=== PATIENT | female | born 1980 | race Caucasian/White ===

== ENCOUNTER 2016-09-04 12:38 | Inpatient (IN) | payer MEDICAID ==
[2016-09-04] MEDS ORDERED: MAG HYDROX/AL HYDROX/SIMETH 30 ML UDCUP PO PRN (22:05)
[2016-09-04] MEDS ORDERED: LORazepam 0.5 MG TAB PO PRN (22:05)
[2016-09-04] MEDS ORDERED: MAGNESIUM HYDROXIDE 30 ML UDCUP PO PRN (22:05)
[2016-09-05] MEDS: GABAPENTIN 400 MG CAP PO SCH ×2 (08:31→08:43)
[2016-09-05] MEDS: metFORMIN HCL 500 MG TAB PO SCH (08:32)
[2016-09-05] MEDS: SPIRONOLACTONE 50 MG TAB PO SCH (08:32)
[2016-09-05] MEDS: amLODIPine BESYLATE 5 MG TAB PO SCH ×2 (08:32→08:44)
[2016-09-05] MEDS: MULTIVITAMINS 1 EACH TAB PO SCH (08:32)
[2016-09-05] MEDS: LOSARTAN POTASSIUM 50 MG TAB PO SCH ×2 (08:32→08:45)
[2016-09-05] MEDS: OMEGA-3 FATTY ACIDS 1,000 MG CAP PO SCH ×2 (08:32→20:41)
[2016-09-05] MEDS: Levomefolate/Algal Oil [Deplin-Algal Oil 15 Mg Capsule] PO SCH (08:39)
[2016-09-05] MEDS ORDERED: Desvenlafaxine Succinate [Pristiq] 100 MG PO SCH (09:00)
[2016-09-05] MEDS ORDERED: DESVENLAFAXINE SUCCINATE PO SCH (10:54)
[2016-09-05] MEDS ORDERED: buPROPion XL 150 MG TAB PO ONE (11:16)
[2016-09-05] MEDS ORDERED: VENLAFAXINE XR 150 MG CAP PO ONE (11:28)
[2016-09-05] MEDS: VENLAFAXINE XR 150 MG CAP PO SCH (12:20)
--- NOTE | 2016-09-05 13:44 | BAPA ---
[f rep st] ADMISSION PSYCHIATRIC ASSESSMENT DATE OF SERVICE: 09/05/2016 CHIEF COMPLAINT: "I just wanted the pain to stop." HISTORY OF PRESENT ILLNESS: The patient is a 36-year-old female, well known to me from previous outpatient ECT. She has a history of mood problems and previous diagnoses of treatment-resistant major depression with consideration of possible bipolar disorder. In recent months, we have been focusing more on the mood variability and she has had several trials of atypical agents and mood stabilizers. Most recently, she was tried on Latuda and Lamictal. She states she believes the Lamictal may have been somewhat helpful, but has had persistent loose bowels with it. Latuda was not helpful and she experienced some akathisia and it was discontinued by her outpatient psychiatrist about 2 weeks ago. She reports struggling with the of her about 7 weeks ago and continuing to have significant grief. He was suffering from cystic fibrosis and had a lung transplant. He had done well with this for several years until getting a respiratory infection this winter and eventually dying. She states that she has been unable to overcome the grief of this and it has certainly been known to our treatment staff and her family that she has been struggling quite a bit. She had verbally contracted for safety with her family and they had a plan in place to keep an eye on her. Her mother had visited with her earlier in the day on Sunday and stated that she was tearful talking about her , but that she was not mentioning any thoughts of suicide. Her mother then heard sirens and saw that police and ambulance were responding to her daughter's home, which is only several hundred feet from her home. She then ran over and her daughter was found unconscious after taking a large overdose of multiple medications in the home. She was Life Flighted to [place] from there and was unconscious and was intubated in the ICU for several days. She did ultimately recover without any major complications and was transferred to our facility for further treatment. Today, she states that she is regretful and remorseful about the events and cannot identify a specific precipitant. She states that she has considered suicide for some time, but had made a promise to her that she would "live enough for both of us." She reports, however, having, in her words, too much psychic pain and grief and stated that she could not see an end to this and decided that she would simply take all of her pills "to make the pain finally go away." She then took every medication she could find in her home, with the expressed intention of killing herself. She does state, however, that she texted her ex-boyfriend, who is a crime prevention police officer, that she had done this and had some expectation that he would send help. He, in fact , did call the ambulance and police, who ultimately responded. Today, she states that she feels like this was a relief to her in some way, and that she feels guilty and ashamed for having done this to her family, but that she is more hopeful. She states that she is no longer feeling suicidal and would like to work on new ways of addressing her depression and grief and would also like to consider medication changes. PAST PSYCHIATRIC HISTORY: Significant for multiple previous medication trials in the past, well documented in previous evaluations. She is followed by a psychiatrist in [place] and also sees a therapist. She has had a history of previous psychiatric hospitalizations and previous suicide attempts. ALLERGIES: N-acetylcysteinate and erythromycin. CURRENT MEDICATIONS: Norvasc 10 mg daily, Pristiq 150 mg daily, Flonase nasal spray 2 sprays h.s., gabapentin 800 mg t.i.d., Lamictal 150 mg daily, Losartan 50 mg daily, metformin 500 mg b.i.d., omega-3 fatty acids 1000 mg b.i.d., Protonix 40 mg h.s., Requip 1 mg h.s., and spironolactone 50 mg daily. PAST MEDICAL HISTORY: Significant for chronic interstitial cystitis, chronic fibromyalgia pain, diagnosis of fibromyalgia, polycystic ovary disease. SOCIAL HISTORY: The patient lives alone in a home in [place] near her parents and her sister. She does not work outside of the home and has been fairly disabled due to her chronic depression. She was for 4 years until the of her about 7 weeks ago. She is very close to her parents and her sister and has been the primary caregiver to her sister's 2 young children over time. She uses marijuana on an intermittent basis up to daily, which she believes helps with her chronic myofascial pain. She has no other significant history of substance abuse. FAMILY HISTORY: Noncontributory. ADMISSION LABORATORY: No additional labs were drawn on transfer. MENTAL STATUS EXAMINATION: Reveals a well groomed, neatly dressed female. She is pleasant and cooperative and interacts well with the examiner. Her affect is actually fairly bright and she smiles frequently, though she does become tearful when describing the events and also her . Her mood is described as "actually a lot better." Her thought process is linear and goal directed. Her thought content reveals no evidence of psychosis. She is alert and oriented to person, place, time, and situation. Her sensorium is clear. Her intellect is at least average as evidenced by her educational and occupational histories, fund of knowledge, and vocabulary. She continues to acknowledge the thoughts of suicide, but states that she is not currently having any urge to harm herself. Her insight and judgment appear to be good. IMPRESSION: Major Depressive Episode, recurrent, severe, without psychosis, acute grief, recent of , chronic illness, recent overdose. The patient is a pleasant 36-year-old female, well known to me from previous outpatient ECT treatment. She has had a fairly protracted course of outpatient ECT and when we have tried to extend the intervals, she has had setbacks. She was doing well after [place] until the of her , which was a sudden and unexpected event. This predictably caused her to decline , and she has simply not recovered. Her suicide attempt was extremely high lethality and it is definitely cause for us to re-evaluate her treatment plan. She looks better today and is hopeful and willing to participate. Her family remains excellent support and are invested in continuing to participate as well. PLAN: 1. Admit to the [facility] unit on an M1 hold. 2. We will look at her medications and have already made a few changes. She wants to discontinue her Cozaar and spironolactone, as well as her gabapentin, as she believes that these are not necessary. She also does not believe that the Requip helps her, so we will discontinue this as well. We will change the Pristiq to Effexor XR due to the lack of availability of Pristiq on the formulary. The similarity of these medications was discussed with the patient, and I believe it will be fine to do that. We will then add Rexulti 1 mg at bedtime to augment the venlafaxine and to replace the recently discontinued Latuda and Lamictal, which she does not want to take any longer either. We will engage the patient in individual group and milieu psychotherapies, as well as family work while she is in the hospital, maintaining close observations for suicidality. We will do an abbreviated acute course with between 3 and 5 ECT treatments while she is here with us to hopefully gain some omentum and get her moving forward. ESTIMATED LENGTH OF STAY: 7-10 days. /[id number]/MODL MTDD
[2016-09-05] MEDS: BREXPIPRAZOLE 1 MG TAB PO SCH (20:41)
[2016-09-05] MEDS: FLUTICASONE NASAL 120 SPRAYS/16 GM MDI EACHNARE SCH (20:41)
[2016-09-05] MEDS: PANTOPRAZOLE SODIUM 40 MG TAB PO SCH (20:41)
[2016-09-06] MEDS ORDERED: NS 1,000 ML IV ONE (07:00)
[2016-09-06] MEDS ORDERED: ONDANSETRON DISINTEGRATING 4 MG TAB PO ONE (07:00)
[2016-09-06] MEDS ORDERED: LIDOCAINE 2% 5 ML SDV ID ONE (07:00)
[2016-09-06] MEDS ORDERED: CITRIC ACID/SODIUM CITRATE 30 ML UDCUP PO ONE (07:00)
[2016-09-06] MEDS ORDERED: THEOPHYLLINE ORAL SOLUTION 80 MG/15 ML UDCUP PO ONE (07:00)
[2016-09-06] MEDS: Levomefolate/Algal Oil [Deplin-Algal Oil 15 Mg Capsule] PO SCH (08:19)
[2016-09-06] MEDS: SPIRONOLACTONE 50 MG TAB PO SCH (08:20)
[2016-09-06] MEDS: MULTIVITAMINS 1 EACH TAB PO SCH (08:20)
[2016-09-06] MEDS: metFORMIN HCL 500 MG TAB PO SCH (08:21)
[2016-09-06] MEDS: LOSARTAN POTASSIUM 50 MG TAB PO SCH (08:21)
[2016-09-06] MEDS: VENLAFAXINE XR 150 MG CAP PO SCH (08:22)
[2016-09-06] MEDS: OMEGA-3 FATTY ACIDS 1,000 MG CAP PO SCH ×2 (08:27→19:57)
[2016-09-06 09:27] LABS: ANION GAP 14 mEq/L (8-16); CALCIUM 9.9 mg/dL (8.5-10.4); CARBON DIOXIDE 22 mEq/l (22-31); CHLORIDE 104 mEq/L (97-110); CREATININE 0.9 mg/dL (0.6-1.0); GLOMERULAR FILTRATION RATE > 60; GLUCOSE 87 mg/dL (70-100); POTASSIUM 4.5 mEq/L (3.5-5.2); SODIUM 140 mEq/L (134-144)
[2016-09-06] MEDS ORDERED: SCOPOLAMINE HYDROBROMIDE 1.5 MG PATCH TD ONE (09:31)
[2016-09-06] MEDS ORDERED: LOPERAMIDE HCL 2 MG CAP ONE (09:32)
[2016-09-06] MEDS: SCOPOLAMINE HYDROBROMIDE 1.5 MG PATCH TD SCH (10:20)
[2016-09-06] MEDS: LOPERAMIDE HCL 2 MG CAP PO PRN (10:34)
--- NOTE | 2016-09-06 11:52 | BCON ---
[f rep st] BEHAVIORAL HEALTH CONSULTATION INTERNAL MEDICINE CONSULTATION DATE OF CONSULTATION: 09/05/2016 REASON FOR CONSULTATION: Medical clearance for inpatient behavioral health stay. HISTORY OF PRESENT ILLNESS: Mrs. Gillespie came to [facility] yesterday for inpatient treatment, including electroconvulsive therapy for worsening depression and suicidality. She had taken an overdose of her medications, which was treated near her home in [place], and then she was transferred to [employer] [facility] where she has been receiving electroconvulsive therapy in the past. She says she feels better now. The suicidality and depression followed the of her approximately 7 weeks ago. She is interested in simplifying her medications and would like to discontinue ropinirole, amlodipine, and gabapentin, which had been prescribed for presumptive restless legs syndrome, hypertension, and fibromyalgia. She currently is without any acute complaints. PAST MEDICAL HISTORY: 1. Bipolar disorder with depression. 2. Polycystic ovary syndrome. 3. Fibromyalgia. 4. Chronic interstitial cystitis. 5. Restless leg syndrome. 6. Obesity. 7. Hypertension. 8. Seasonal allergies. PAST SURGICAL HISTORY: 1. Appendectomy. 2. Exploratory laparoscopy in the process of diagnosis of interstitial cellulitis. MEDICATIONS: Prior to admission, she was takin. Ropinirole 1 mg p.o. at bedtime. 2. Metformin 500 mg p.o. daily. 3. Amlodipine 10 mg p.o. daily. 4. Spironolactone 50 mg p.o. daily. 5. Pantoprazole 40 mg at bedtime. 6. [place]-3 fatty acids 1000 mg p.o. b.i.d. 7. Multivitamin 1 p.o. daily. 8. Losartan 50 mg p.o. daily. 9. Levomefolate/alga oil 1 p.o. daily. 10. Hydrocodone/acetaminophen 5/325 one p.o. q.4 hours p.r.n. 11. Gabapentin 800 mg p.o. t.i.d. 12. Fluticasone nasal spray 2 sprays at bedtime. 13. Desvenlafaxine 100 mg p.o. daily. ALLERGIES: Listed to acetylcysteine and erythromycin base. SOCIAL HISTORY: Her recently . He had cystic fibrosis. She has no children. She is unemployed. She is a nonsmoker and a nondrinker. She uses marijuana. FAMILY HISTORY: Noncontributory. REVIEW OF SYSTEMS: Per chart review, she has had an approximately 11 kg weight loss since October of last year. She has ongoing discomfort from interstitial cystitis and fibromyalgia, which limit her ability to exercise; still, she says she gets out and walks most every day approximately half an hour. She reports she sleeps approximately 12 hours each night. She snores, is tired during the day, and can take a nap at any time. She denies fevers, chills, heat or cold intolerance, cough, dyspnea chest pain, palpitations. Other than that, a 10- point review of systems is negative. PHYSICAL EXAMINATION: VITAL SIGNS: Blood pressure is 128/68, heart rate is 94, respiratory rate is 16, oxygen saturation is 96% on room air, temperature is 36.6 degrees centigrade. Her weight is 108.9 kg for a body mass index of 36. GENERAL: This is a well-nourished, well-developed obese woman who appears her chronologic age, cooperative and in no acute distress. HEENT: Extraocular movements are intact. Pupils are equal, round, and reactive to light. Mucous membranes are moist. Dentition is in good condition. Airway is uncrowded, Mallampati class 2. NECK: Full. There is no thyromegaly. HEART: There is a regular rate and rhythm with no murmurs, rubs, or gallops. LUNGS: Clear to auscultation bilaterally. ABDOMEN: Soft, nontender, nondistended with normoactive bowel sounds. EXTREMITIES: There is no cyanosis, clubbing, or edema. Radial pulses are 2+ bilaterally. Dorsalis pedis pulses are 1+ bilaterally. NEUROLOGIC: She is alert and oriented x3. Cranial nerves 2-12 are grossly intact. There is no focal weakness. Sensation is intact to light touch, and deep tendon reflexes are 2+ bilaterally at the biceps, patella and Achilles tendons. ASSESSMENT/RECOMMENDATIONS: 1. Mental health issues, pending further evaluation and management per Psychiatry and the mental health team. 2. Obesity with weight loss over the past 10 months. Encouraged continued exercise with gradually increased duration and intensity in order to improve her fitness, improve her weight loss, and avoid flaring symptoms of fibromyalgia. 3. Chronic interstitial cystitis. No particular treatment is indicated at present. 4. Polycystic ovary disease. Agree with continuing metformin. Agree with continuing spironolactone which will both treat her blood pressure and block some of the androgenic effects associated with polycystic ovary syndrome. 5. Hypertension. Agree with discontinuing amlodipine. She is on a large dose, so observe for elevated blood pressures. If so, she is on half the maximum dose of losartan, and this can easily be increased. I will get a baseline basic metabolic profile to ensure, with simultaneous angiotensin receptor luis alberto and spironolactone, that she does not have an elevated potassium. 6. Possible restless leg syndrome. Observe for return of symptoms with the discontinuation of ropinirole. She says this was diagnosed by her psychiatrist in the past and has not been found with a formal sleep study. 7. Concern for obstructive sleep apnea. Her body habitus and history of snoring , as well as daytime fatigue and sleepiness despite 12 hours per night in bed, are all consistent with obstructive sleep apnea. She does not have a crowded airway, however. Advised continued attempts at weight loss and advised a sleep study after her discharge. 8. She reports a history of hypothyroidism which went along with 100-pound weight gain. She reports that her thyroid studies have normalized since then. Will also order a TSH to evaluate her current thyroid status, as hypothyroidism could also account for her daytime sleepiness. 9. Seasonal allergies appear to be adequately controlled with her fluticasone nasal spray. 10. Gastroesophageal reflux disorder, on pantoprazole. Curious that is dosed at bedtime; it is more effective if it is dosed 1st thing in the morning, 30 minutes or more before a meal. I see no medical contraindications to this patient's continued stay on the inpatient behavioral health unit or to any psychiatric medications or procedures. Thank you very much for including me in the care of this patient, and please do not hesitate to contact me or the hospitalists service should there be need for further medical consult/evaluation. I will follow along regarding her blood pressure and possibly other medical comorbidities if necessary. /[id number]/MODL MTDD
[2016-09-06] MEDS ORDERED: CITRIC ACID/SODIUM CITRATE 30 ML UDCUP ONE (13:21)
[2016-09-06] MEDS ORDERED: ONDANSETRON DISINTEGRATING 4 MG TAB ONE (13:21)
[2016-09-06] MEDS ORDERED: PROMETHAZINE HCL 25 MG TAB ONE (13:21)
[2016-09-06] MEDS: FLUTICASONE NASAL 120 SPRAYS/16 GM MDI EACHNARE SCH (19:57)
[2016-09-06] MEDS: BREXPIPRAZOLE 1 MG TAB PO SCH (19:57)
[2016-09-06] MEDS: PANTOPRAZOLE SODIUM 40 MG TAB PO SCH (19:57)
--- NOTE | 2016-09-06 22:06 | SOAPPROG ---
SOAP Progress Note Assessment/Plan: Assessment: Plan: 09/06/16 22:06 Seems to be a bit too good at this point. Will CCM, watch closely for indicators of false positive reporting. Subjective: Pt seen, discussed with staff. Reports continued depressed mood though states she is more hopeful. Denies active SI at this time though appears to myself and staff as presenting overly positive. I met with her parents for 30", reviewed treatment plan. Objective: Vital Signs Temp Pulse Resp BP Pulse Ox 36.5 C 84 16 106/57 L 92 09/06/16 17:16 09/06/16 17:16 09/06/16 17:16 09/06/16 17:16 09/06/16 17:16 Laboratory Results 09/06/16 06:30 MSE: Brighter affect, smiling. Mood is "better." TP linear. TC reveals no psychosis. Denies any thought of suicide whatsoever. - Time Spent With Patient Time Spent With Patient: 35" - Pending Discharge Pending Discharge Within 24 Hours: No Pending Discharge Within 48 Hours: No ICD10 Worksheet Patient Problems: Problems Problem Status Onset Depression Acute Suicidal ideation Acute
[2016-09-07] MEDS: MULTIVITAMINS 1 EACH TAB PO SCH (08:38)
[2016-09-07] MEDS: VENLAFAXINE XR 150 MG CAP PO SCH (08:38)
[2016-09-07] MEDS: SPIRONOLACTONE 50 MG TAB PO SCH (08:38)
[2016-09-07] MEDS: metFORMIN HCL 500 MG TAB PO SCH (08:38)
[2016-09-07] MEDS: OMEGA-3 FATTY ACIDS 1,000 MG CAP PO SCH ×2 (08:38→21:08)
[2016-09-07] MEDS: LOSARTAN POTASSIUM 50 MG TAB PO SCH (08:38)
[2016-09-07] MEDS: Levomefolate/Algal Oil [Deplin-Algal Oil 15 Mg Capsule] PO SCH (08:39)
--- NOTE | 2016-09-07 17:50 | SOAPPROG ---
HITESH Progress Note Assessment/Plan: Assessment: Plan: 09/06/16 22:06 Seems to be a bit too good at this point. Will CCM, watch closely for indicators of false positive reporting. 09/07/16 17:50 Improved. CCM. Subjective: Pt seen, discussed with staff. Reports feeling "a lot better." Affect is brighter and she is more hopeful. I reviewed treatment plan and recommended that we treat tomorrow and Sunday with reassessment at that time. I discussed this with her father also who feels comfortable with her returning home tomorrow and continuing ECT as an outpatient next week. Patient prefers this, stating she is safe to leave the hospital at this time. Objective: Vital Signs Temp Pulse Resp BP Pulse Ox 36.6 C 59 L 15 113/59 L 94 09/07/16 06:00 09/07/16 06:00 09/07/16 06:00 09/07/16 08:38 09/07/16 06:00 Laboratory Results 09/06/16 06:30 MSE: Calm, coop. Affect is brighter, stable. Mood is "a lot better." TP linear. TC reveals no psychosis. Denies current SI. - Time Spent With Patient Time Spent With Patient: 35" - Pending Discharge Pending Discharge Within 24 Hours: Yes Pending Discharge Date: 09/08/16 Pending Discharge Time: 11:00 ICD10 Worksheet Patient Problems: Problems Problem Status Onset Depression Acute Suicidal ideation Acute
[2016-09-07] MEDS: BREXPIPRAZOLE 1 MG TAB PO SCH (21:07)
[2016-09-07] MEDS: PANTOPRAZOLE SODIUM 40 MG TAB PO SCH (21:07)
[2016-09-07] MEDS: FLUTICASONE NASAL 120 SPRAYS/16 GM MDI EACHNARE SCH (21:07)
[2016-09-08] MEDS: LOSARTAN POTASSIUM 50 MG TAB PO SCH ×2 (05:35→09:10)
[2016-09-08] MEDS ORDERED: THEOPHYLLINE ORAL SOLUTION 80 MG/15 ML UDCUP ONE (05:41)
[2016-09-08] MEDS ORDERED: fentaNYL 100 MCG/2 ML INJ ONE (05:42)
[2016-09-08] MEDS ORDERED: MIDAZOLAM 2 MG/2 ML VIAL ONE (05:42)
[2016-09-08] MEDS ORDERED: ONDANSETRON 4 MG/2 ML VIAL ONE (05:43)
[2016-09-08] MEDS ORDERED: KETOROLAC 30 MG/1 ML SDV ONE (05:43)
[2016-09-08] MEDS ORDERED: GLYCOPYRROLATE 0.2 MG/1 ML VIAL ONE (05:43)
[2016-09-08] MEDS ORDERED: PROPOFOL 200 MG/20 ML VIAL ONE (05:43)
[2016-09-08] MEDS ORDERED: ETOMIDATE 20 MG/10 ML VIAL ONE (05:44)
[2016-09-08] MEDS ORDERED: ROCURONIUM 50 MG/5 ML VIAL ONE (05:44)
[2016-09-08] MEDS ORDERED: SUCCINYLCHOLINE CHLORIDE 200 MG/10 ML VIAL ONE (05:44)
[2016-09-08] MEDS ORDERED: DEXAMETHASONE 4 MG/ML VIAL ONE (05:47)
[2016-09-08] MEDS: SCOPOLAMINE HYDROBROMIDE 1.5 MG PATCH TD SCH (07:18)
[2016-09-08] MEDS: LOPERAMIDE HCL 2 MG CAP PO PRN (07:19)
[2016-09-08] MEDS ORDERED: LIDOCAINE 2% 5 ML SDV ID ONE (07:23)
[2016-09-08] MEDS ORDERED: NS 1,000 ML IV ONE (07:23)
[2016-09-08] MEDS ORDERED: THEOPHYLLINE ORAL SOLUTION 80 MG/15 ML UDCUP PO ONE (07:23)
[2016-09-08] MEDS ORDERED: CITRIC ACID/SODIUM CITRATE 30 ML UDCUP PO ONE (07:23)
[2016-09-08] MEDS ORDERED: ONDANSETRON DISINTEGRATING 4 MG TAB PO ONE (07:23)
[2016-09-08] MEDS ORDERED: ONDANSETRON DISINTEGRATING 4 MG TAB ONE (07:25)
[2016-09-08] MEDS ORDERED: PROMETHAZINE HCL 25 MG TAB ONE (07:25)
[2016-09-08] MEDS ORDERED: CITRIC ACID/SODIUM CITRATE 30 ML UDCUP ONE (07:26)
[2016-09-08] MEDS: Levomefolate/Algal Oil [Deplin-Algal Oil 15 Mg Capsule] PO SCH (07:41)
[2016-09-08] MEDS: SPIRONOLACTONE 50 MG TAB PO SCH (09:09)
[2016-09-08] MEDS: VENLAFAXINE XR 150 MG CAP PO SCH (09:09)
[2016-09-08] MEDS: OMEGA-3 FATTY ACIDS 1,000 MG CAP PO SCH (09:09)
[2016-09-08 09:10] VITALS: BP 134/82; PULSE 102; RESP 14; TEMP 98; O2SAT 94
[2016-09-08] MEDS: metFORMIN HCL 500 MG TAB PO SCH (09:10)
[2016-09-08] MEDS: MULTIVITAMINS 1 EACH TAB PO SCH (09:10)
== END 2016-09-08 10:30 | disposition home or self-care (01) | DRG 885 ==
LOC: BBEH 19:25
PROVIDERS: ADMIT Psychiatry & Neurology Psychiatry; ATTEND Psychiatry & Neurology Psychiatry
PROC: GZB4ZZZ Other Electroconvulsive Therapy (ICD-10-PCS; principal; 2016-09-06)
DX: F33.2 Major depressive disorder, recurrent severe without psychotic features (principal); F43.21 Adjustment disorder with depressed mood; Z91.5 Personal history of self-harm; E66.09 Other obesity due to excess calories; Z68.36 Body mass index [BMI] 36.0-36.9, adult; M79.7 Fibromyalgia; E03.9 Hypothyroidism, unspecified; K21.9 Gastro-esophageal reflux disease without esophagitis; I10 Essential (primary) hypertension
CPT/HCPCS: J0330; J1100; J1200; J1642; J1885; J2250; J2405; J2704; J3010

== ENCOUNTER → 2016-09-12 | Outpatient (CLI) | payer MEDICAID ==
[~2016-09-12] MED LIST: ALTEPLASE 2 MG VIAL ONE; IOPAMIDOL (ISOVUE 370) 100 ML BTL IV ONE
== END ==
LOC: FIMAGING 13:29
PROVIDERS: ATTEND Surgery
DX: Z45.2 Encounter for adjustment and management of vascular access device (principal); F32.9 Major depressive disorder, single episode, unspecified
CPT/HCPCS: J2997; Q9967

== ENCOUNTER → 2016-12-13 | Outpatient (CLI) | payer MEDICAID ==
[~2016-12-13] MED LIST changes: +ALTEPLASE 2 MG VIAL IVP ONE; -ALTEPLASE 2 MG VIAL ONE; -IOPAMIDOL (ISOVUE 370) 100 ML BTL IV ONE; +IOPAMIDOL (ISOVUE-300) 150 ML BTL ONE
== END ==
LOC: FIMAGING 15:56
PROVIDERS: ATTEND Surgery
DX: T82.898A Other specified complication of vascular prosthetic devices, implants and grafts, initial encounter (principal)
CPT/HCPCS: J1642; J2997; Q9967